=== PATIENT | male | born 1975 | race Two or more races ===

== ENCOUNTER 2021-08-25 11:14 | Emergency (ER) | payer OTHER ==
[~2021-08-25] VITALS: Ht 167.6 cm; Wt 63.5 kg
--- NOTE | 2021-08-25 11:57 | NUR ---
IV LINE ESTABLISHED LAC#18, BLOOD DRAWN AND SENT TO LAB; SALINE LOCKED IV LINE. Addendum: 08/25/21 at 1159 by MAKAYLA ERNST#[id number]
[2021-08-25] MEDS ORDERED: BUPRENORPHINE HCL 8 MG TAB.SUBL SL ONE ×2 (11:59→12:00)
[2021-08-25 12:11] LABS: BASOPHILS % (AUTO) 0.4 % (0.0-2.0); EOSINOPHILS % (AUTO) 0.1 % (0.0-6.0); HEMATOCRIT 45 % (39-51); HEMOGLOBIN 15.7 g/dL (13.5-17.5); LYMPHOCYTES # (AUTO) 1.4 K/uL (0.8-4.8); LYMPHOCYTES % (AUTO) 17.5 % (20.0-44.0); MEAN CORPUSCULAR HGB CONC 35 g/dl (31.0-36.0); MEAN CORPUSCULAR VOLUME 86 fL (80-96); MONOCYTES # (AUTO) 0.4 K/uL (0.1-1.30); MONOCYTES % (AUTO) 5.2 % (2.0-12.0); NEUTROPHILS # (AUTO) 6.3 K/uL (1.8-8.9); NEUTROPHILS % (AUTO) 76.8 % (43.0-81.0); PLATELET COUNT (AUTO) 228 K/uL (150-450); RED BLOOD CELL COUNT(AUTO) 5.22 MIL/uL (4.5-6.0); WHITE BLOOD COUNT (AUTO) 8.2 K/uL (4.3-11.0)
[2021-08-25 12:20] LABS: CALCIUM, SERUM 9.6 mg/dL (8.5-10.1); CARBON DIOXIDE 28 mmol/L (21-32); CHLORIDE 101 mmol/L (98-107); GLUCOSE 127 mg/dL (74-106); POTASSIUM 3.6 mmol/L (3.5-5.1); SODIUM SERUM 139 mmol/L (136-145); UREA NITROGEN, BLOOD 15 mg/dL (7-18)
[2021-08-25] MEDS ORDERED: NALO4SPR BNOSTRILS (12:35)
[2021-08-25] MEDS ORDERED: IBUP-1955 PO (12:35)
[2021-08-25] MEDS ORDERED: ONDA4TAB5 PO (13:54)
[2021-08-25] MEDS ORDERED: LORAZEPAM 1 MG TABLET ONE (14:07)
--- NOTE | 2021-08-25 14:17 | NUR ---
Patient to law enforcement, badge# [id number], ok to book. Written and verbal after care instructions given. Patient verbalizes understanding of instruction.
--- NOTE | 2021-08-25 14:17 | NUR ---
IV line removed, no bleeding noted.
[2021-08-25 14:18] VITALS: BP 135/83
[2021-08-25] MEDS ORDERED: LORAZEPAM 1 MG TABLET PO ONE (14:30)
== END 2021-08-25 14:19 ==
LOC: ER 11:18
DX: F11.23 Opioid dependence with withdrawal (principal); R07.89 Other chest pain; Z60.2 Problems related to living alone; Z79.899 Other long term (current) drug therapy
CPT/HCPCS: 36415; 71045-TC; 80048-TC; 84484-TC; 85025-TC